=== PATIENT | female | born 1965 | race Caucasian/White ===

== ENCOUNTER 2016-10-10 09:04 | Emergency (ER) | payer OTHER ==
[~2016-10-10] VITALS: Ht 160 cm; Wt 44.5 kg
[2016-10-10 09:06] VITALS: BP 158/88; PULSE 86; RESP 16; O2SAT 98
--- NOTE | 2016-10-10 09:22 | ED.REPORT ---
HPI-General Illness Date of Service Oct 10, 2016 ED Provider: Johanna Baca MD The patient is a 51 year old female who presents to the emergency department complaining of generalized weakness that began 1 week ago. The patient was diagnosed with a sinus infection last week at urgent care and is taking Augmentin. Before she went to urgent care she had experienced a headache, runny nose with green drainage, and cough for 3 weeks. Since starting the antibiotic she has developed nausea, diarrhea, decreased appetite, weight loss of 12 lbs, and dizziness. She also reports an abnormality seen on her x-ray at urgent care. She denies fever, chills, abdominal pain, cough, shortness of breath, decreased urination or dysuria. Nursing Notes Stated Complaint: DEHYDRATED/WEAK Chief Complaint: General Complaint Nursing Notes Reviewed: Yes Allergies: Coded Allergies: codeine (Verified Adverse Reaction, Severe, Nausea,Vomiting, 10/10/16) Scheduled Ondansetron ODT (Ondansetron ODT) 8 Mg Tab.rapdis 8 MG PO Q6H General Time Seen by MD: 09:21 Chief Complaint Weakness Hx Obtained From: Patient Arrived By: Walk-in Sudden in Onset?: No Onset Occurred: 1 week ago Symptom Duration: Since onset Severity: Current: No pain currently Severity: Maximum: No pain Recent Healthcare: No recent hospitalization, Recent doctor visit Similar Sx Previous: No Past Medical History Past Medical History Recent sinus infection treated with augmentin Family History Noncontributory Smoking History Unknown if Ever Smoker Social History Other Social History: Local resident Ambulatory Status Independent Review of Systems Full Review of Systems Constitutional: Reports: Fatigue, Recent wt loss, Weakness - generalized Ears / Nose / Throat: Denies: Nasal congestion, Sinus problem Respiratory: Denies: Non-productive cough, Shortness of breath GI: Reports: Diarrhea, Nausea, Vomiting, Denies: Abdominal pain Female: Denies: Dysuria, Hematuria, Urinary frequency, Urinary urgency, Urination decreased, Urination increased Neurologic: Reports: Weakness, Denies: Headache Complete sys rev & neg: except as marked. Physical Exam Vital Signs Vital Signs Date Time Temp Pulse Resp B/P Pulse Ox O2 Delivery O2 Flow Rate FiO2 10/10/16 09:06 36.0 86 16 158/88 98 Room Air Initial VS: Reviewed, Vital signs abnormal Head / Eyes: Atraumatic, Normocephalic, PERRL ENT: Mucous membranes moist, Conjunctiva normal, No scleral icterus Neck: Supple, Non-tender, Full range of motion Respiratory: Breath sounds normal, Clear to auscultation, No respiratory distress Cardiovascular: Regular rate & rhythm, Heart sounds normal, Intact distal pulses Abdomen / GI: Soft, Non-tender, No guarding, No rebound, No distention Lymphatic: No lymphadenopathy Extremities: Vascular intact, Neuro intact, No swelling, No tenderness Skin: Warm, Dry, No cyanosis Neurologic: Alert, Oriented, Nonfocal Psychiatric: Mood/affect normal, Behavior normal, Normal thought content General/Constitutional: Awake, Alert, No acute distress, Cooperative Interpretation & Diagnostics Lab Results Interpretation Result Diagram: 10/10/16 0925 10/10/16 0925 Test 10/10/16 09:25 10/10/16 11:00 White Blood Count 4.5th/mm3 (3.8-10.1) Red Blood Count 4.48mil/mm3 (3.90-5.20) Hemoglobin 13.7g/dL (12.0-15.6) Hematocrit 42.0% (35.0-46.0) Mean Corpuscular Volume 93.8fL (81-100) Mean Corpuscular Hemoglobin 30.6pg (27.0-35.0) Mean Corpuscular Hemoglobin Concent 32.6% (32.0-37.0) Red Cell Distribution Width 12.3% (12.3-15.4) Platelet Count 298bil/L (150-400) Neutrophils (%) (Auto) 72.9% (40-74) Lymphocytes (%) (Auto) 18.8% (14-46) Monocytes (%) (Auto) 6.8% (4-12) Eosinophils (%) (Auto) 0.7% (0-5) Basophils (%) (Auto) 0.4% (0-3) Sodium Level 141mEq/L (134-144) Potassium Level 3.4mEq/L (3.5-5.2) Chloride Level 102mEq/L (97-108) Carbon Dioxide Level 26mmol/L (18-29) Blood Urea Nitrogen 8mg/dL (6-24) Creatinine 0.49mg/dL (0.57-1.00) Estimat Glomerular Filtration Rate 189mL/min (>59) Glucose Level 135mg/dL (60-99) Calcium Level 9.5mg/dL (8.5-10.1) Magnesium Level 1.8mg/dL (1.6-2.6) Total Bilirubin 1.0mg/dL (0.0-1.2) Aspartate Amino Transf (AST/SGOT) 18U/L (0-50) Alanine Aminotransferase (ALT/SGPT) 16U/L (0-32) Alkaline Phosphatase 65U/L (25-150) Total Protein 8.0g/dL (6.4-8.4) Albumin 4.4g/dL (3.4-5.0) Lipase 45U/L (13-60) Hold Eduardo Top Tube Received (Received) Urine Color Straw (YELLOW) Urine Appearance Hazy (CLEAR,HAZY) Urine pH 6.5 (5.0-8.0) Urine Specific [place] 1.005 (1.003-1.035) Urine Protein Negativemg/dL (NEG,TRACE) Urine Glucose (UA) Negativemg/dL (NEGATIVE) Urine Ketones Negativemg/dL (NEGATIVE) Urine Occult Blood Negative (NEGATIVE) Urine Nitrite Negative (NEGATIVE) Urine Bilirubin Negative (NEGATIVE) Urine Urobilinogen Normalmg/dL (NORMAL) Urine Leukocyte Esterase Negative (NEGATIVE) Urine RBC 0-2/hpf (0-2) Urine WBC 0-5/hpf (0-5) Urine Epithelial Cells Occasional/hpf (NONE-MOD) Urine Crystals None seen (NONE SEEN) Urine Bacteria None/hpf (NONE-FEW) Urine Hyaline Casts None/lpf (NONE) Urine Granular Casts None seen (NONE SEEN) Urine Waxy Casts None seen (NONE SEEN) Urine Red Blood Cell Casts None seen (NONE SEEN) Urine White Blood Cell Casts None seen (NONE SEEN) Urine Mucus None seen (None Seen) Urine Trichomonas None seen (NONE SEEN) Urine Yeast None (NONE SEEN) Urinalysis Comment None Urine Culture Reflexed Not indicated X-Ray Chest Interpretation Chest Xray Interpretation: IMPRESSION: Resolving left lower lobe pneumonia. Additional followup in 6-8 weeks is suggested to ensure complete resolution. Dictated by: Markus Morales M.D. on 10/10/2016 at 9:57 Interpretation / Wet Read by: Interpret - Radiologist Re-Eval/Medical Decision Med Decision/Clinical Course The patient presents with multiple concerns and complaints. Medication side effect is the most likely cause of her symptoms. The patient's symptoms have improved and she started on the medication for 5 days. Differential diagnoses considered were adverse medication reaction, pneumonia, electrolyte abnormality , dehydration, and sepsis. Source of Hx: Old records Time of Eval: 10:43 Re-Evaluation/Progress Note: Discussed exam findings, x-ray and lab results, diagnosis, and plan for discharge. All questions were addressed. Counseled Regarding: Diagnosis, Lab results, Need for follow-up, When/why to return to ED Discharge & Departure Primary Impression: Decrease in appetite Additional Impressions: Pneumonia Pneumonia type: due to unspecified organism Laterality: left Lung location : lower lobe of lung Qualified Code: J18.9 - Pneumonia, unspecified organism Nausea Diarrhea Sinusitis Sinusitis location: unspecified location Chronicity: unspecified Qualified Code: J32.9 - Chronic sinusitis, unspecified Medication side effect Encounter type: initial encounter Qualified Code: T88.7XXA - Unspecified adverse effect of drug or medicament, initial encounter Disposition: Home Discharge Condition All VS Reviewed: Yes Condition: Stable Additional Instructions: Thank you for entrusting us with your care today. Your x-ray does show evidence of an improving pneumonia. Your nausea, diarrhea, and decreased appetite may be related to the Augmentin. Take 2 more days of these antibiotics and this should resolve your pneumonia. Use Zofran as needed for your nausea. When you feel like eating, I recommend starting with a bland diet (bananas, rice, applesauce, and toast). Make sure to drink plenty of fluids. I also recommend using an over the counter nasal saline rinse three times per day. Followup with your regular doctor for re-evaluation. Please return to the emergency department for any new or concerning symptoms. Referrals: NOPCP (PCP) Scribe Attestation Portions of this note were transcribed by Erin Galarza. I, Dr. Baca personally performed the history, physical exam and medical decision-making; I reviewed and confirmed the accuracy of the information in the transcribed note. Signed by: Chencho Padilla, 10/10/2016 at 1110. Johanna Baca MD Oct 10, 2016 09:22 Erin Galarza Oct 10, 2016 09:32
[2016-10-10] MEDS ORDERED: 0.9% Sodium Chloride 1,000 ML IV ONE (09:35)
[2016-10-10 09:51] LABS: BASOPHILS % (AUTO) 0.4 % (0-3); EOSINOPHILS % (AUTO) 0.7 % (0-5); MONOCYTES % (AUTO) 6.8 % (4-12); Mean Corpuscular Hemoglobin 30.6 pg (27.0-35.0); Mean Corpuscular Volume 93.8 fL (81-100); NEUTROPHILS % (AUTO) 72.9 % (40-74); Platelet Count 298 bil/L (150-400)
--- NOTE | 2016-10-10 10:01 | DRSVH ---
PROCEDURE: X-RAY CHEST, TWO VIEWS ([id number]) INDICATIONS: wt loss and weakness TECHNIQUE: 2 views of the chest were acquired. COMPARISON: 10/06/2016 FINDINGS: Surgical changes and devices: None. Lungs and pleura: No pleural effusions or pneumothorax. The left retrocardiac opacity on the last ex am, projecting over the spine on lateral view, appears improved, compatible with resolving pneumonia. Remainder of lungs clear. Mediastinum: Mediastinal contours are normal. Heart size is normal. Bones and chest wall: No suspicious bony abnormalities. Soft tissues appear unremarkable. IMPRESSION: Resolving left lower lobe pneumonia. Additional followup in 6-8 weeks is suggested to ens ure complete resolution. Dictated by: Markus Morales M.D. on 10/10/2016 at 9:57 Approved by: Markus Morales M.D. on 10/10/2016 at 10:00
[2016-10-10 10:02] LABS: Magnesium 1.8 mg/dL (1.6-2.6)
[2016-10-10] MEDS ORDERED: Ondansetron 2 mg/mL 2 mL Inj IVPUSH ONE (10:45)
[2016-10-10] MEDS ORDERED: ONDA8TAB10 PO (11:04)
[2016-10-10 11:32] LABS: APPEARANCE,URINE HAZY (CLEAR,HAZY); COLOR,URINE STRAW (YELLOW); OCCULT BLOOD,URINE NEGATIVE (NEGATIVE); PH,URINE 6.5 (5.0-8.0); UROBILINOGEN,URINE NORMAL (NORMAL)
== END 2016-10-10 11:23 | disposition home or self-care (01) ==
LOC: SED 09:04
DX: T88.7XXA Unspecified adverse effect of drug or medicament, initial encounter (principal); J18.9 Pneumonia, unspecified organism; R11.2 Nausea with vomiting, unspecified; R19.7 Diarrhea, unspecified; J32.9 Chronic sinusitis, unspecified; X58.XXXA Exposure to other specified factors, initial encounter; Y93.9 Activity, unspecified; Y99.8 Other external cause status; Y92.9 Unspecified place or not applicable; F50.9 Eating disorder, unspecified; Z88.5 Allergy status to narcotic agent
CPT/HCPCS: 36415; 71020; 80053; 81000; 83690; 83735; 85025; 96361; 96374; 99284; J2405; J7030